=== PATIENT | female | born 1960 | race Caucasian/White ===

== ENCOUNTER 2020-07-09 05:34 | Day surgery (SDC) | payer MEDICARE ==
[~2020-07-09] VITALS: Ht 149.9 cm; Wt 78.6 kg
--- NOTE | ~2020-07-09 | HEMODYNAMI ---
PATIENT:MICHELLE WATT MEDICAL RECORD: [id number] : 56 LOCATION:[facility] ADMISSION DATE: 07/09/20 Generatedon:19:18 Patient name: MICHELLE WATT Patient #: [id number] SSN: DO B: 1960 Date of study: 07/09/2020 Page: Of Hemodynamic Procedure Report Patient Data Patient Demographics Procedure consent was obtained First Name: MICHELLE Gender: Female Last Name: SHUKRI : 1960 [facility] Initial: J Age: 60 year(s) Patient #: [id number] Race: Unknown Additional ID: [id number] Contact details [address]: [address] [place] [address] State: [place] City: [place] Zip code: [address] Admission Admission Data Admission Date: 07/09/2020 Admission Time: 5:34 Procedure Procedure Types Cath Procedure Peripheral Cath Diagnostic Procedure Miscellaneous Procedure Description Procedure Date Procedure Date: 07/09/2020 Procedure Start Time: 8:18 Procedure Staff Name Function Dorian Mckinney MD Performing Physician Rubens Smith RT Monitor BORA BRUNSON RT Scrub Myrna Ireland RN Nurse Elena Jauregui RN Nurse Procedure Data Cath Procedure Fluoroscopy Diagnostic fluoroscopy Total fluoroscopy Time: time: 13.2 min 13.2 min Diagnostic fluoroscopy Total fluoroscopy dose: 230 dose: 230 mGy mGy Contrast Material Contrast Material Type Amount (ml) Isovue 300 68 Diagnostic catheters Device Type Used For End Catheter Placement Merit ULTRA BOLUS FLUSH 5Fr 90CM catheter ([id number]) Procedure Medications Medication Administration Route Dosage Versed I.V. 1 mg Fentanyl I.V. 50 mcg Heparin Flush Bag added to field 3 bags (1000units/500ml NS) Lidocaine 1% added to field 20 Ancef (1Gm/50ml NS) I.V.P.B 1 g Heparin Bolus I.V. 4000 units Fentanyl I.V. 50 mcg Versed I.V. 1 mg Hemodynamics Rest Heart Rate: 85 (bpm) Snapshots Pre Cath Intra NCS Post Cath Vital Signs Time Heart Resp SPO2 etCO2 NIBP (mmHg) Rhythm Pain Sedation Rate (ipm) (%) (mmHg) Status Level (bpm) 8:07:35 86 15 36.6 139/70(108) NSR 0 (11) 10(A) , No pain 8:11:49 91 25 29.9 131/74(104) NSR 0 (11) 10(A) , No pain 8:15:59 85 22 28.4 131/75(102) NSR 0 (11) 10(A) , No pain 8:20:09 90 69 33.6 127/75(106) NSR 0 (11) 10(A) , No pain 8:23:15 91 93 100 35.8 123/70(95) NSR 0 (11) 10(A) , No pain 8:27:23 90 72 100 41.8 121/71(109) NSR 0 (11) 10(A) , No pain 8:31:35 88 87 100 38.8 119/64(82) NSR 0 (11) 8(A) , No pain 8:35:43 91 61 100 38.1 118/70(96) NSR 0 (11) 8(A) , No pain 8:39:49 87 44 100 36.6 125/72(97) NSR 0 (11) 8(A) , No pain 8:43:59 87 34 100 36.6 132/72(96) NSR 0 (11) 8(A) , No pain 8:48:11 86 37 100 35.8 126/68(104) NSR 0 (11) 8(A) , No pain 8:52:20 92 55 100 34.3 128/71(90) NSR 0 (11) 8(A) , No pain 8:54:54 84 35 100 33.6 126/69(95) NSR 0 (11) 8(A) , No pain 8:59:00 89 50 100 34.3 146/80(120) NSR 0 (11) 8(A) , No pain 9:03:16 87 46 100 36.6 161/76(108) NSR 0 (11) 8(A) , No pain 9:05:14 86 89 100 38.1 141/76(94) NSR 0 (11) 8(A) , No pain 9:09:29 87 70 100 37.4 147/78(102) NSR 0 (11) 8(A) , No pain 9:13:47 90 21 100 35.9 139/72(109) NSR 0 (11) 8(A) , No pain 9:18:01 75 29 100 36.6 141/71(96) NSR 0 (11) 8(A) , No pain Medications Time Medication Route Dose Verified Delivered Reason Notes Effec tiveness by by 8:20:05 Ancef (1Gm/50ml I.V.P.B 1 g Dorian Norris Per NS) Hank medrano MD RN 8:22:42 Versed I.V. 1 mg Dorian Norris for Hank Ireland sedation RN 8:22:54 Fentanyl I.V. 50 Dorian Norris for mcg Hank Ireland sedation RN 8:27:09 Heparin Flush added 3 Dorian Alarcon used for Bag to bags Hank Mckinney procedure (1000units/500ml field MD OBRIEN NS) 8:27:35 Lidocaine 1% added 20ml Dorian Alarcon for to vial Hank Mckinney sedation field MD OBRIEN 8:53:37 Heparin Bolus I.V. 4000 Dorian Norris Per units Hank medrano MD RN 9:03:58 Fentanyl I.V. 50 Dorian Norris for mcg Hank Ireland sedation RN 9:05:46 Versed I.V. 1 mg Dorian Norris for Hank solo MD director recreation Log Time Note 7:53:28 Myrna Ireland RN sent for patient. Start room use. 7:53:35 Time tracking: Regular hours (M-F 7:00 - 5:00) 7:53:50 Plan of Care:Hemodynamics will remain stable., Cardiac rhythm will remain stable., Comfort level will be maintained., Respiratory function will remain adequate., Patient/ family verbilizes understanding of procedure., Procedure tolerated without complication., Recovers from procedure without complications.. 7:53:54 Use device set IR Diagnostic 7:53:56 SHEATH 5FR [place] (SEC544) opened to sterile field. 7:53:56 TUBING Contrast Injection High Pressure (NTJ233W) opened to sterile field. 7:53:57 Micropuncture VSI 4FR kit opened to sterile field. 7:53:57 BENTSON 145cm wire (G88195) opened to sterile field. 7:53:57 ACIST Syringe (71061) opened to sterile field. 7:53:58 ACIST Hand Control (09896) opened to sterile field. 7:53:59 ACIST Manifold (96199) opened to sterile field. 7:53:59 Bag Decanter (2002S) opened to sterile field. 7:54:00 Sterile Angiographic Pack opened to sterile field. 7:54:01 Tegaderm 4 x 4 (1626W) opened to sterile field. 7:54:09 Patient received from Outpatients to IR Alert and oriented. Tansferred to table in Supine position. 7:54:11 Signed procedure consent form obtained from patient. 7:54:12 Correct patient and procedure confirmed by team. 7:54:13 ECG and BP/O2 sat monitors applied to patient. 7:54:14 Full Disclosure recording started 7:54:15 7:54:19 H&P Date Dictated: 07/09/2020 H&P Addendum completed by physician on day of procedure. (MUST COMPLETE FOR ALL OUTPATIENTS). 7:54:20 Pre-procedure instructions explained to patient. 7:54:20 Pre-op teaching completed and patient verbalized understanding. 7:54:22 Family in waiting room. 7:54:23 Patient NPO since Midnight. 7:55:15 Is patient on blood thinner?Yes 7:55:18 ACC The patient was administered the following blood thiners within the last 24 hours: ACCAspirin 7:55:21 Patient diabetic? No. 7:55:23 7:55:24 ----Pre-sedation anethsthesia assessment.---- 7:55:28 Previous problem with sedation/anesthesia? No ? 7:55:30 Snore? Yes 7:55:32 Sleep apnea? No 7:55:33 Deviated septum? No 7:55:35 Opens mouth fully? Yes 7:55:36 Sticks out tongue? Yes 7:55:39 Airway obstruction? No ? 7:55:41 Dentures? No ? 7:57:26 Pre procedure: right dorsailis pedis pulse Doppler 7:57:32 Pre procedure: right posterior tibial pulse Doppler 7:57:43 IV patent on arrival in right wrist with 0.9% NaCl at O. 7:57:44 Alarms reviewed by R. N. 7:57:45 Sharps counted by scrub and verified by R.N. 7:57:49 Right groin area was prepped with chlora-prep and draped in sterile fashion 7:58:06 1) 90+ Normal kidney functon but urine findings or structural abnormalities or genetic trait point to kidney disease. 7:58:46 Maximum allowable contrast dose (3.7 X eGFR X 0.75)249.75 ml. 8:06:34 Vital chart was started 8:06:35 Baseline sample Acquired. 8:13:14 Physician arrived 8:13:15 --------ALL STOP TIME OUT------ 8:13:19 Final Timeout: patient, procedure, and site verified with staff and physician. All members of the team are in agreement. 8:13:22 Right groin site verified by team. 8:13:26 Fire Safety Assessment: A--An alcohol-based skin anteseptic being used preoperatively., C--Open oxygen or nitrous oxide is being used. 8:13:33 Sedation plan: IV Moderate Sedation Medication:Versed, Fentanyl 8:18:02 Procedure started. 8:18:36 A [employer] ULTRA BOLUS FLUSH 5Fr 90CM catheter ([id number]) was advanced over the wire and used for . 8:20:05 Ancef (1Gm/50ml NS) 1 g I.V.P.B was administered by Myrna Ireland RN; Per physician; Verbal order read back and verified. 8:22:42 Versed 1 mg I.V. was administered by Myrna Ireland RN; for sedation; Verbal order read back and verified. 8:22:54 Fentanyl 50 mcg I.V. was administered by Myrna Ireland RN; for sedation; Verbal order read back and verified. 8:27:09 Heparin Flush Bag (1000units/500ml NS) 3 bags added to field was administered by Dorian Mckinney MD; used for procedure; Verbal order read back and verified. 8:27:35 Lidocaine 1% 20ml vial added to field was administered by Dorian Mckinney MD; for sedation; Verbal order read back and verified. 8:29:34 INFLATOR BasixTOUCH (IU5009) opened to sterile field. 8:32:12 ROADRUNNER .035 260 glide wire (K06085) opened to sterile field. 8:33:34 COOK SHEATH 7FR RAABE 70CM (Q51337) opened to sterile field. 8:33:35 SLOAN 260 wire (N56546) opened to sterile field. 8:41:00 CXI Catheter 90cm (Y67060) opened to sterile field. 8:47:45 GLIDE WIRE ANGLE 260cm (LE8759) opened to sterile field. 8:53:37 Heparin Bolus 4000 units I.V. was administered by Myrna Ireland RN; Per physician; Verbal order read back and verified. 8:55:46 Place stent Inflation Number: 1 A Visipro 9 x 17 x 135 Stent ([id number]) was prepped and advanced across the Undefined1 . The stent was deployed at 0 BETH for 0:00 (min:sec) . 9:03:58 Fentanyl 50 mcg I.V. was administered by Myrna Ireland RN; for sedation; Verbal order read back and verified. 9:05:21 PERCLOSE Proglide 6FR ( 13169554) opened to sterile field. 9:05:46 Versed 1 mg I.V. was administered by Myrna Ireland RN; for sedation; Verbal order read back and verified. 9:06:39 Fluoroscopy time 13.20 minutes. 9:06:44 Flurop Dose total: 230 9:06:44 Fluoroscopy dose: 230 mGy 9:08:25 Procedure ended.(Physican Out) 9:10:16 Contrast amount:Isovue 300 68ml. 9:10:18 Sharps counted by scrub and verified by R.N. 9:11:44 Insertion/operative site no bleeding no hematoma. 9:11:48 Post-op/insertion site Right Femoral artery dressed using a 4 x 4 and Tegaderm. 9:11:51 Post right femoral artery:stable 9:11:57 Post Procedure Pulses reassessed and unchanged 9:11:58 Post procedure instruction explained to patient.Patient verbalizes understanding. 9:11:59 Procedure and supply charges have been captured, reviewed, submitted and are correct. 9:18:18 Report given to Outpatients. 9:18:22 Patient transfered to Outpatients with Stretcher. 9:18:50 Vital chart was stopped Intervention Summary Intervention Notes Time ActionType Lesion and Equipment Used Action# Pressure Duration Attributes 8:55:[address] stent Undefined1 Visipro 9 x 17 x 1 0 00:00 135 Stent ([id number]) Device Usage Item Name Manufacture Quantity Catalog Number [facility] Minimal Lot# / Charge Number Stock Stock Serial# Code SHEATH 5FR Terumo 1 [id number] 851587 53052 5 5 [place] (IUH795) TUBING Contrast Merit 1 [id number] 776156 552303 67157 1 5 Injection High Medical Pressure ([id number]) Micropuncture VSI VSI VASCULAR 1 7266V 854601 62801 4 5 4FR kit SOLUTIONS BENTSON 145cm Cook Medical 1 X75805 347438 57017 6 5 wire (V66188) ACIST Syringe Acist 1 45128 207186 194017 95320 1 20 (55366) Medical Systems Inc ACIST Hand Acist 1 68494 504559 160149 58677 2 5 Control (46200) [employer] Inc ACIST Manifold Acist 1 25780 010186 262327 00066 7 5 (67511) Medical Systems Inc Bag Decanter Microtek 1 2001S 327266 70522 84798 6 5 (2001S) Medical Inc. Sterile Cardinal 1 [id number] 308994 00211 4 5 Angiographic Pack Health Tegaderm 4 x 4 3M 1 1626W 506216 275122 56248 9 5 (1626W) Merit ULTRA BOLUS Merit 1 [id number] 613570 17113 6 5 FLUSH 5Fr 90CM Medical catheter ([id number]) INFLATOR Merit 1 HB4523 883417 417825 77226 2 5 BasixTOUCH Medical (LN0588) ROADRUNNER .035 Cook Medical 1 E54519 316825 105578 12352 7 5 [id number] 260 glide wire (W39193) COOK SHEATH 7FR [employer] 1 E65617 603302 63013 14458 5 1 9928143 RAABE 70CM (W86325) SLOAN 260 wire [employer] 1 L42870 710733 469311 51216 0 5 12684236 (D68310) CXI Catheter 90cm Cook [facility] 1 P12510 582321 466699 08431 3 5 17700642 (E74802) GLIDE WIRE ANGLE Terumo 1 OX6592 092394 927946 41038 8 5 260cm (KP4680) Visipro 9 x 17 x Medtronic 1 JKO97-28-62-502 121587 466789 85128 8 5 [id number] 135 Stent ([id number]) PERCLOSE Proglide Ricardo 1 57972-870 117721 961805 56100 7 5 6FR ( 95428086) Vascular Signature Audit [place]anc Stage Time Signature Unsigned Intra-Procedure 07/09/2020 Rubens 9:18:42 AM [place] RT (R) (CV) [facility] [address] [place] [address]
[2020-07-09 06:16] LABS: BASOPHILS 0.4 % (0-2); EOSINOPHILS 1.3 % (0-7); HEMATOCRIT 42.9 % (36.0-48.0); HEMOGLOBIN 13.9 g/dL (12-16); IMMATURE GRANULOCYTES 0.2 % (0-5); LYMPHOCYTE ABS# 1.04 10x3/uL (1.18-3.74); LYMPHOCYTES 19.2 % (15-50); MCH 31.1 pg (26.0-34.0); MCHC 32.4 g/dL (31.0-37.0); MEAN PLATELET VOLUME 10.2 fL (7.4-10.4); MONOCYTES 8.5 % (2-11); NEUTROPHIL ABS# 3.82 10x3/uL (1.56-6.13); NEUTROPHILS 70.4 % (40-80); PLATELET COUNT 263 10x3/uL (130-400); RBC 4.47 10x6/uL (4.00-5.40); RDW 13.6 % (11.5-14.5); WBC 5.4 10x3/uL (4.8-10.8)
[2020-07-09 06:22] LABS: CALC OSMOLALITY 280 mosm/kg (275-300); CALCIUM 9.5 mg/dL (8.5-10.1); CARBON DIOXIDE 28.4 mmol/L (21.0-32.0); CHLORIDE - SERUM 104 mmol/L (98-107); CREATININE - SERUM 0.6 mg/dL (0.6-1.3); GLUCOSE 93 mg/dL (74-106); POTASSIUM - SERUM 3.7 mmol/L (3.5-5.1); SODIUM 141 mmol/L (136-145); UREA NITROGEN 13 mg/dL (7-18); eGFR NON AFRICAN AMERICAN > 90 mL/min (90-120)
[2020-07-09] MEDS ORDERED: SINGULAIR10 MG PO (06:32)
[2020-07-09] MEDS ORDERED: FLUTICASONE PRO16 GM (06:33)
[2020-07-09] MEDS ORDERED: PROAIR HFA8.5 G1 INH (06:33)
[2020-07-09] MEDS ORDERED: ADVAIR 250-501 EAC1 (06:33)
[2020-07-09] MEDS ORDERED: CALCIUM 600 +1 EAC3 PO (06:34)
[2020-07-09] MEDS ORDERED: BAYER CHEWABLE81 MG PO (06:35)
[2020-07-09] MEDS ORDERED: VITAMIN D10000 UNIT PO (06:35)
[2020-07-09 06:45] VITALS: BP 134/60; Ht 149.9 cm; Wt 78.6 kg
[2020-07-09 07:11] LABS: APTT 27.9 SECONDS (22.8-39.4); INR 1.01 (0.85-1.17); PROTIME 12.3 SECONDS (11.6-15.0)
--- NOTE | 2020-07-09 10:02 | NUR ---
4450 TO 9208 BY STRETCHER, GOWN HAD BEEN REMOVED, REPLACED WITH FRESH GOWN. SITE CDI, EXPLAINED TO LAY FLAT FOR 1ST HOUR, SIPS OF WATER PROVIDED. DAUGHTER AT SIDE. 2952 TIME FRAME FOR DISCHARGE GIVEN, PT UNSURE IF COULD SWALLOW A PILL LAYING FLAT, WILL WAIT UNTIL ABLE TO ELEVATE HEAD.
--- NOTE | 2020-07-09 10:18 | NUR ---
1005 ICE PACK TO RIGHT GROIN, PULSES PRESENT, DRESSING CDI.
--- NOTE | 2020-07-09 10:27 | NUR ---
1020 NO BLEEDING, NO HEMATOMA, ICE CAP ON.
--- NOTE | 2020-07-09 11:32 | NUR ---
1130 FINGER FOOD DIET SERVED. DAUGHTER IS ASSISSTING PT. WITH HER MEAL.
--- NOTE | 2020-07-09 11:40 | NUR ---
1140 QUYEN FROM RADIOLOGY ROUNDS ON PT, GIVES POST INSTRUCTIONS AND RX FOR PLAVIX.
--- NOTE | 2020-07-09 13:33 | NUR ---
1335 CO INSTS. REVIEWED WITH PT. AND PT'S DAUGHTER, VOICED UNDERSTANDING, GETTING DRESSED, WILL BE RELEASED IN WC. STATES UNDERSTANDS THE IMPORTANCE OF TAKING PLAVIX DAILY.
== END 2020-07-09 13:40 | disposition home or self-care (01) ==
LOC: D.SP 05:34 → D.RAD 08:00 → D.OPS 08:00 → EDSTATUS 08:00 → D.SP 13:40
PROVIDERS: ATTEND Radiology Diagnostic Radiology
DX: I77.1 Stricture of artery (principal); I70.208 Unspecified atherosclerosis of native arteries of extremities, other extremity; G45.8 Other transient cerebral ischemic attacks and related syndromes

== ENCOUNTER → 2020-09-29 10:04 | Outpatient (CLI) | payer MEDICARE ==
[2020-07-09 06:45] VITALS: BMI 35.0
[~2020-09-29 10:04] MED LIST: ADVAIR 250-501 EAC1; BAYER CHEWABLE81 MG PO; CALCIUM 600 +1 EAC3 PO; FLUTICASONE PRO16 GM; PROAIR HFA8.5 G1 INH; SINGULAIR10 MG PO; VITAMIN D10000 UNIT PO
== END | disposition home or self-care (01) ==
LOC: D.US 10:04
PROVIDERS: ATTEND Thoracic Surgery (Cardiothoracic Vascular Surgery)
DX: G45.8 Other transient cerebral ischemic attacks and related syndromes (principal)